=== PATIENT | female | born 1995 | race Caucasian/White ===

== ENCOUNTER 2016-10-05 16:10 | Emergency (ER) | payer OTHER ==
[2016-10-05 16:18] VITALS: O2SAT 100
[2016-10-05] MEDS ORDERED: Sodium Chloride 0.9% 1,000 ML IV STA (17:01)
[2016-10-05 18:27] LABS: BASO % 0.3 % (0.0-2.0); EOS # 0.2 K/uL (0.0-0.7); EOS % 1.8 % (0.0-4.0); HEMOGLOBIN 11.7 g/dL (12.0-16.0); LYMPH # 2.3 K/uL (1.0-4.3); LYMPH % 21.3 % (20.0-40.0); MEAN CELL VOLUME 83.7 fl (81.0-99.0); MEAN CORPUSCULAR HGB CONC 33.4 g/dL (33.0-37.0); MONO % 9.2 % (0.0-10.0); NEUT # 7.1 K/uL (1.8-7.0); NEUT % 67.4 % (50.0-75.0); NRBC % 0.1 % (0.0-0.0); RBC 4.18 Mil/uL (3.80-5.20); RED CELL DISTRIBUTION WIDTH 13.9 % (11.5-14.5); WHITE BLOOD COUNT 10.6 K/uL (4.8-10.8)
[2016-10-05 18:29] LABS: SQUAMOUS EPITHIAL 3 /hpf (0-5); URINE BACTERIA OCC (<OCC); URINE BILIRUBIN NEGATIVE (NEGATIVE); URINE BLOOD NEGATIVE (NEGATIVE); URINE CLARITY SLIGHTY-CLOUDY (Clear); URINE COLOR YELLOW (YELLOW); URINE GLUCOSE (UA) NEG (Normal); URINE LEUKOCYTE ESTERASE NEG Leu/uL (Negative); URINE NITRATE NEGATIVE (NEGATIVE); URINE PROTEIN NEGATIVE (NEGATIVE); URINE UROBILINOGEN 0.2-1.0 mg/dL (0.2-1.0)
[2016-10-05 18:44] LABS: ALB/GLOB RATIO 1.3 (1.0-2.1); ALBUMIN 4.1 g/dL (3.5-5.0); ALT/SGPT 31 U/L (9-52); AST/SGOT 22 U/L (14-36); BLOOD UREA NITROGEN 12 mg/dl (7-17); CALCIUM 9.1 mg/dL (8.4-10.2); GFR AFRICAN-AMERICAN > 60; GFR NON-AFRICAN AMERICAN > 60
--- NOTE | 2016-10-05 19:19 | ED PDOC ---
HPI: General Adult Time Seen by Provider: 10/05/16 17:01 Chief Complaint (Nursing): Dizziness/Lightheaded Chief Complaint (Provider): Dizziness, nausea History Per: Patient History/Exam Limitations: no limitations Onset/Duration Of Symptoms: Days (4-5) Have you had recent travel within the past 21 days to any of the following countries: [place], [place], [place] or [place]?: No Current Symptoms Are (Timing): Still Present Additional History Per: Patient Additional Complaint(s): The patient is a 21yo female, presents to the ED for evaluation of dizziness and nausea with associated mild abdominal pain and mild headache ongoing for the past 4-5 days. Patient also reports she "feels like body is swollen". Patient reports she has an IUD in place and denies any vaginal discharge or bleeding. Patient denies any pertinent past medical history. Currently, offers no additional medical complaints. LMP: 08/30 Past Medical History Reviewed: Historical Data, Nursing Documentation, Vital Signs Vital Signs: Last Vital Signs Temp 98.0 F 10/05/16 21:55 Pulse 84 10/05/16 21:55 Resp 18 10/05/16 21:55 BP 121/74 10/05/16 21:55 Pulse Ox 100 10/05/16 22:10 - Medical History PMH: No Chronic Diseases - Surgical History Surgical History: No Surg Hx - Family History Family History: States: No Known Family Hx, Unknown Family Hx - Social History Current smoker - smoking cessation education provided: No - Home Medications Home Medications: Ambulatory Orders Medication Instructions Recorded Esomeprazole Magnesium [Nexium] 20 mg PO DAILY #30 capsule.dr 10/05/16 Ibuprofen [Motrin Tab] 600 mg PO Q6 #30 tab 10/05/16 - Allergies Allergies/Adverse Reactions: Allergies Allergy/AdvReac Type Severity Reaction Status Date / Time No Known Allergies Allergy Verified 10/05/16 16:16 Review of Systems ROS Statement: Except As Marked, All Systems Reviewed And Found Negative Gastrointestinal: Positive for: Abdominal Pain Neurological: Positive for: Weakness, Headache, Dizziness Physical Exam - Reviewed Nursing Documentation Reviewed: Yes Vital Signs Reviewed: Yes - Physical Exam Appears: Positive for: Well, Non-toxic, No Acute Distress Head Exam: Positive for: ATRAUMATIC, NORMAL INSPECTION, NORMOCEPHALIC Skin: Positive for: Normal Color, Warm, DRY Eye Exam: Positive for: Normal appearance Neck: Positive for: Normal Cardiovascular/Chest: Positive for: Other (arrhythmia) Respiratory: Positive for: Normal Breath Sounds. Negative for: Respiratory Distress Gastrointestinal/Abdominal: Positive for: Soft, Tenderness (mild lower abdomen tenderness) Pelvic Exam: Positive for: Cervicitis (Heterogenous cervical discharge with cervicitis.), Other (IUD string noted in cervix) Extremity: Positive for: Pedal Edema (trace edema in bilateral lower extremities.). Negative for: Deformity Neurologic/Psych: Positive for: Alert, Oriented - Laboratory Results Result Diagrams: 10/05/16 18:21 10/05/16 18:21 - ECG ECG: Positive for: Interpreted By Me, Viewed By Me Interpretation Of ECG: Normal Sinus Sinus Arrhythmia Rate of [address]/T changes O2 Sat by Pulse Oximetry: 100 (RA) Pulse Ox Interpretation: Normal Medical Decision Making Medical Decision Making: Time: 1714 Impression: Dizziness, weakness Plan: -- UPreg -- Labs -- US Transvaginal -- Zofran -- Zithromax -- Rocephin -- IV fluids -- Pelvic exam performed with Nurse Ashley as tape calender Reassess Time: 1820 UPreg is negative. Chemistry indicates mild anemia, otherwise normal. Time: 1929 Patient to be signed out to Dr. Chris Oviedo pending US transvaginal and final disposition. Scribe Attestation: Documented by Eliz Mao acting as a scribe for Diego Keenan DO. Provider Attestation: All medical record entries made by the Scribe were at my direction and personally dictated by me. I have reviewed the chart and agree that the record accurately reflects my personal performance of the history, physical exam, medical decision making, and the department course for this patient. I have also personally directed, reviewed, and agree with the discharge instructions and disposition. Disposition - Clinical Impression Clinical Impression: Ruptured ovarian cyst - Patient ED Disposition Is Patient to be Admitted: Transfer of Care Counseled Patient/Family Regarding: Studies Performed, Diagnosis, Need For Followup, Rx Given - Disposition [facility] Disposition: Transfer of Care Disposition Time: 17:30 Condition: STABLE Prescriptions: Esomeprazole Magnesium [Nexium] 20 mg PO DAILY #30 capsule. Ibuprofen [Motrin Tab] 600 mg PO Q6 #30 tab Instructions: Ovarian Cyst (ED) Patient Signed Over To: Chris Oviedo Handoff Comments: Pending US.
[2016-10-05] MEDS ORDERED: cefTRIAXone (Rocephin) 250 mg Inj IM ONE (19:25)
[2016-10-05] MEDS ORDERED: Azithromycin 200 mg/5 ml Susp (22.5 ml) PO STA (19:26)
--- NOTE | 2016-10-05 20:09 | ED PDOC ---
- Laboratory Results Result Diagrams: 10/05/16 18:21 10/05/16 18:21 - ECG O2 Sat by Pulse Oximetry: 100 (RA) Medical Decision Making Medical Decision Making: Receiving sign out: Patient signed out to me by Dr. Keenan at 1930 pending US Transvaginal. Scribe Attestation: Documented by Eliz Mao acting as a scribe for Chris Oviedo MD. Provider Attestation: All medical record entries made by the Scribe were at my direction and personally dictated by me. I have reviewed the chart and agree that the record accurately reflects my personal performance of the history, physical exam, medical decision making, and the department course for this patient. I have also personally directed, reviewed, and agree with the discharge instructions and disposition. Disposition - Clinical Impression Clinical Impression: Ruptured ovarian cyst - POA Present On Arrival: None - Disposition [facility] [[facility]] Disposition: Routine/Home Disposition Time: 21:25 Condition: STABLE Prescriptions: Esomeprazole Magnesium [Nexium] 20 mg PO DAILY #30 capsule. Ibuprofen [Motrin Tab] 600 mg PO Q6 #30 tab Instructions: Ovarian Cyst (ED) Progress Note - Review of Symptoms Events since last encounter: Time: 2101 US Transvaginal IMPRESSION: IUD in expected location in the endometrial canal; small amount of fluid in the endometrial canal; free fluid in the cul-de-sac, physiologic versus recent cyst rupture Time: 2122 Patient informed of imaging results. Advised to follow up with powder core tester. Also informed to return to the ED if symptoms worsen or new symptoms present. Patient expresses understanding and is agreeable. Stable for discharge home.
--- NOTE | 2016-10-05 20:58 | US ---
EXAM: US Pelvis Complete, Transabdominal CLINICAL HISTORY: 21 years old, female; Pain; Pelvic pain; Additional info: Pelvic pain, iud placement TECHNIQUE: Real-time transabdominal pelvic ultrasound (complete) with image documentation. COMPARISON: There are no prior studies for comparison. FINDINGS: Uterus: Uterus measures approximately 7.7 x 2.6 x 4.8 cm. endometrium measures approximate 5 mm in width. There is shadowing from an IUD Right ovary: Right ovary measures approximately 4.3 x 2.9 x 4.2 cm. There are multiple small follicles. There is intraovarian blood flow. Left ovary: Left ovary measures approximately 4.3 x 1.2 x 2.7 cm. There are multiple small follicles. There is intraovarian blood flow. Free fluid: There is no free fluid. Bladder: Partially distended bladder is unremarkable IMPRESSION: Normal pelvic ultrasound with IUD in place EXAM: US Pelvis, Transvaginal CLINICAL HISTORY: 21 years old, female; Pain; Pelvic pain; Additional info: Pelvic pain, iud placement TECHNIQUE: Real-time transvaginal pelvic ultrasound (complete) with image documentation. Transvaginal imaging was used for better evaluation of the endometrium and adnexa. EXAM DATE/TIME: 10/05/2016 5:18 PM COMPARISON: There are no prior studies for comparison. FINDINGS: Uterus: Uterus measures approximately 6.3 x 3.6 x cm. there is shadowing from an IUD in the endometrial canal. There is fluid in the endometrial canal. Endometrium measures approximately 5 mm in length Left ovary: Left ovary measures approximately 2.67 x 1.44 x 1.97 cm. There are multiple small follicles. There is intraovarian blood flow. Right ovary: Right ovary measures approximately 4.06 x 2.8 x 2.91 cm. There are multiple small follicles. There is intraovarian blood flow. There is trace fluid in the right adnexa Free fluid: There is free fluid in the cul-de-sac. IMPRESSION: IUD in expected location in the endometrial canal; small amount of fluid in the endometrial canal; free fluid in the cul-de-sac, physiologic versus recent cyst rupture
[2016-10-05] MEDS ORDERED: cefTRIAXone (Rocephin) 250 mg Inj ONE (21:42)
[2016-10-05] MEDS ORDERED: Sterile Water 10 ML IV ONE (21:42)
[2016-10-06 00:49] VITALS: BP 121/74; PULSE 84; RESP 18; TEMP 98
--- NOTE | 2016-10-06 10:09 | CARD ---
APPROVED REPORT EKG Measurement Heart [id number] IA [id number] <Conclusion> Normal sinus rhythm with sinus arrhythmia Normal ECG
== END 2016-10-05 22:00 | disposition home or self-care (01) ==
LOC: H.ER 16:10
DX: N83.209 Unspecified ovarian cyst, unspecified side (principal); R42 Dizziness and giddiness; D64.9 Anemia, unspecified

== ENCOUNTER 2016-12-07 14:24 | Emergency (ER) | payer SELFPAY ==
[2016-12-07 14:32] VITALS: BP 104/62; PULSE 72; RESP 18; TEMP 98.4; O2SAT 98
[2016-12-07] MEDS ORDERED: Sodium Chloride 0.9% 1,000 ML IV STA (15:13)
--- NOTE | 2016-12-07 15:17 | ED PDOC ---
HPI: Headache Time Seen by Provider: 12/07/16 14:56 Chief Complaint (Nursing): Dizziness/Lightheaded Chief Complaint (Provider): headache History Per: Patient History/Exam Limitations: no limitations Onset/Duration Of Symptoms: Days (10), Gradual, Persistent, Worse Since (Wednesday) Current Symptoms Are (Timing): Still Present Severity: Moderate Quality: Aching, "Pain" Preceeding Symptoms: None Associated Symptoms: Nausea, Vomiting. denies: Photophobia, Blurred Vision, Extremity Weakness Additional Complaint(s): Also reports abdominal pain and dizziness and fatigue Tried tylenol with no relief PMD None Past Medical History Reviewed: Historical Data, Nursing Documentation, Vital Signs Vital Signs: Last Vital Signs Temp 98.4 F 12/07/16 14:28 Pulse 72 12/07/16 14:28 Resp 18 12/07/16 14:28 BP 104/62 12/07/16 14:28 Pulse Ox 98 12/07/16 14:28 - Medical History PMH: No Chronic Diseases - Family History Family History: States: No Known Family Hx - Social History Current smoker - smoking cessation education provided: No Alcohol: None - Home Medications Home Medications: Ambulatory Orders Medication Instructions Recorded Esomeprazole Magnesium [Nexium] 20 mg PO DAILY #30 capsule. 10/05/16 Ibuprofen [Motrin Tab] 600 mg PO Q6 #30 tab 10/05/16 Dicyclomine [Bentyl] 20 mg PO BID PRN #30 tab 12/07/16 Naproxen [Naprosyn] 1 tab PO BID PRN #30 tab 12/07/16 Ondansetron ODT [Zofran ODT] 1 odt PO Q6 PRN #20 odt 12/07/16 - Allergies Allergies/Adverse Reactions: Allergies Allergy/AdvReac Type Severity Reaction Status Date / Time No Known Allergies Allergy Verified 10/05/16 16:16 Review of Systems ROS Statement: Except As Marked, All Systems Reviewed And Found Negative (and as per HPI) Constitutional: Positive for: Weakness, Malaise. Negative for: Fever, Chills Eyes: Negative for: Vision Change ENT: Negative for: Throat Pain, Throat Swelling Cardiovascular: Positive for: Light Headedness. Negative for: Chest Pain, Edema Respiratory: Negative for: Cough, Shortness of Breath Gastrointestinal: Positive for: Nausea, Vomiting, Abdominal Pain. Negative for : Diarrhea, Constipation, Melena, Hematochezia, Hematemesis Neurological: Positive for: Headache, Dizziness. Negative for: Weakness, Numbness, Seizures Physical Exam - Reviewed Nursing Documentation Reviewed: Yes Vital Signs Reviewed: Yes - Physical Exam Appears: Positive for: Non-toxic, No Acute Distress Head Exam: Positive for: ATRAUMATIC, NORMOCEPHALIC Skin: Positive for: Warm, Dry Eye Exam: Positive for: EOMI, PERRL. Negative for: Nystagmus ENT: Positive for: Other (tacky mucus membranes). Negative for: Pharyngeal Erythema, Tonsillar Exudate Neck: Positive for: Painless ROM, Supple Cardiovascular/Chest: Positive for: Regular Rate, Rhythm, Chest Non Tender. Negative for: Murmur Respiratory: Positive for: Normal Breath Sounds. Negative for: Rales, Wheezing , Respiratory Distress Gastrointestinal/Abdominal: Positive for: Bowel Sounds, Soft, Tenderness ( diffuse mild). Negative for: Mass, Distended, Guarding, Rebound Back: Positive for: Normal Inspection. Negative for: Decreased ROM Extremity: Positive for: Normal ROM. Negative for: Deformity Neurologic/Psych: Positive for: Alert, environmental permitting specialist II-XII (intact), Oriented (x3), Gait (normal). Negative for: Motor/Sensory Deficits, Aphasia, Facial Droop - Laboratory Results Result Diagrams: 12/07/16 15:30 12/07/16 16:45 Interpretation Of Abn Labs: No significant lab abnormalities - ECG O2 Sat by Pulse Oximetry: 98 Pulse Ox Interpretation: Normal - Progress ED Course And Treament: Accession No. : [id number] Patient Name / ID : IVAN TELLO / [id number] Exam Date : 12/07/2016 16:03:57 ( Approved ) Study Comment : Sex / Age : F / 21Y Creator : RAISSA STOUT MD Dictator : RAISSA STOUT MD Slitting Machine Operator : Disassembler Product : RAISSA STOUT MD Approver2 : Report Date : 12/07/2016 16:42:09 My Comment : PROCEDURE: CT HEAD WITHOUT CONTRAST. HISTORY: Headache COMPARISON: None available. TECHNIQUE: Axial computed tomography images were obtained through the head/brain without intravenous contrast. Radiation dose: Total exam DLP = 830.35 mGy-cm. This CT exam was performed using one or more of the following dose reduction techniques: Automated exposure control, adjustment of the mA and/or kV according to patient size, and/or use of iterative reconstruction technique. FINDINGS: HEMORRHAGE: No intracranial hemorrhage. BRAIN: Butt-white matter differentiation is preserved. There is no mass, mass effect or abnormal extra-axial fluid collection. There is no territorial infarction. VENTRICLES: The ventricles are normal in size, shape and configuration. CALVARIUM: The skull base and calvarium are normal. PARANASAL SINUSES: Predominantly clear. MASTOID AIR CELLS: Predominantly clear. OTHER FINDINGS: None. IMPRESSION: No acute intracranial abnormality. Disposition - Clinical Impression Clinical Impression: Headache Counseled Patient/Family Regarding: Studies Performed, Diagnosis, Need For Followup, Rx Given - Disposition Referrals: [facility] [Outside] - 12/08/16 Disposition: Routine/Home Disposition Time: 17:00 Condition: IMPROVED Prescriptions: Dicyclomine [Bentyl] 20 mg PO BID PRN #30 tab PRN Reason: abdominal pain Naproxen [Naprosyn] 1 tab PO BID PRN #30 tab PRN Reason: Pain Ondansetron ODT [Zofran ODT] 1 odt PO Q6 PRN #20 odt PRN Reason: Nausea/Vomiting Instructions: General Headache (ED), Abdominal Pain (ED)
[2016-12-07 15:45] LABS: BASO % 0.2 % (0.0-2.0); EOS # 0.1 K/uL (0.0-0.7); EOS % 0.9 % (0.0-4.0); LYMPH % 27.4 % (20.0-40.0); MEAN CORPUSCULAR HEMOGLOBIN 27.3 pg (27.0-31.0); MEAN CORPUSCULAR HGB CONC 32.5 g/dL (33.0-37.0); MEAN PLATELET VOLUME 8.2 fl (7.2-11.7); MONO # 0.7 K/uL (0.0-0.8); MONO % 8.9 % (0.0-10.0); NEUT # 4.7 K/uL (1.8-7.0); NEUT % 62.6 % (50.0-75.0); RED CELL DISTRIBUTION WIDTH 14.1 % (11.5-14.5); WHITE BLOOD COUNT 7.5 K/uL (4.8-10.8)
--- NOTE | 2016-12-07 16:43 | CT ---
PROCEDURE: CT HEAD WITHOUT CONTRAST. HISTORY: Headache COMPARISON: None available. TECHNIQUE: Axial computed tomography images were obtained through the head/brain without intravenous contrast. Radiation dose: Total exam DLP = 830.35 mGy-cm. This CT exam was performed using one or more of the following dose reduction techniques: Automated exposure control, adjustment of the mA and/or kV according to patient size, and/or use of iterative reconstruction technique. FINDINGS: HEMORRHAGE: No intracranial hemorrhage. BRAIN: Butt-white matter differentiation is preserved. There is no mass, mass effect or abnormal extra-axial fluid collection. There is no territorial infarction. VENTRICLES: The ventricles are normal in size, shape and configuration. CALVARIUM: The skull base and calvarium are normal. PARANASAL SINUSES: Predominantly clear. MASTOID AIR CELLS: Predominantly clear. OTHER FINDINGS: None. IMPRESSION: No acute intracranial abnormality.
[2016-12-07 16:52] LABS: ALB/GLOB RATIO 1.3 (1.0-2.1); ALKALINE PHOSPHATASE 54 U/L (38-126); ALT/SGPT 23 U/L (9-52); AST/SGOT 22 U/L (14-36); BILIRUBIN,TOTAL 0.4 mg/dl (0.2-1.3); BLOOD UREA NITROGEN 8 mg/dl (7-17); CALCIUM 9.3 mg/dL (8.4-10.2); CARBON DIOXIDE 23 mmol/L (22-30); CHLORIDE 107 mmol/L (98-107); GFR AFRICAN-AMERICAN > 60; GLUCOSE,RANDOM 77 mg/dL (65-105); LIPASE 104 U/L (23-300); MAGNESIUM 1.9 MG/DL (1.6-2.3); PHOSPHOROUS 3.2 mg/dl (2.5-4.5); POTASSIUM 3.9 MMOL/L (3.6-5.0); SODIUM 144 mmol/l (132-148); TOTAL PROTEIN 7.3 G/DL (6.3-8.2)
== END 2016-12-07 17:50 | disposition home or self-care (01) ==
LOC: H.ER 14:24
DX: R51 Headache (principal); R42 Dizziness and giddiness
CPT/HCPCS: 70450; 80053; 81025; 82948; 83690; 83735; 84100; 85025; 96361; 96374; 96375; 99284; J1885; J2765; J7040

== ENCOUNTER 2017-07-11 10:01 | Emergency (ER) | payer SELFPAY ==
[2017-07-11 10:07] VITALS: TEMP 98.4; O2SAT 99
--- NOTE | 2017-07-11 10:34 | ED PDOC ---
HPI: General Adult Time Seen by Provider: 07/11/17 10:33 Chief Complaint (Nursing): Abdominal Pain Chief Complaint (Provider): back pain History Per: Patient Additional Complaint(s): 22 year female with no past medical history presents with low back pain for 3 days. Patient denies abdominal pain despite triage note stating otherwise. No fever or chills, no dysuria, no radiation of pain to lower extremities. Patient thinks that she may be . She denies any vaginal bleeding or discharge at this time. Patient has no concern for STDs. PMD: clinic Past Medical History Reviewed: Historical Data, Nursing Documentation, Vital Signs Vital Signs: Last Vital Signs Temp 98.4 F 07/11/17 10:06 Pulse 82 07/11/17 10:06 Resp 16 07/11/17 10:06 BP 117/71 07/11/17 10:06 Pulse Ox 99 07/11/17 10:48 - Medical History PMH: No Chronic Diseases - Surgical History Surgical History: No Surg Hx - Family History Family History: States: No Known Family Hx - Living Arrangements Living Arrangements: With Family - Social History Current smoker - smoking cessation education provided: No Alcohol: None Drugs: Denies - Home Medications Home Medications: Ambulatory Orders Medication Instructions Recorded Cyclobenzaprine [Cyclobenzaprine 10 mg PO TID PRN #20 tab 07/11/17 HCl] Naproxen [Naprosyn] 500 mg PO BID #20 tab 07/11/17 - Allergies Allergies/Adverse Reactions: Allergies Allergy/AdvReac Type Severity Reaction Status Date / Time No Known Allergies Allergy Verified 07/11/17 10:25 Review of Systems ROS Statement: Except As Marked, All Systems Reviewed And Found Negative Constitutional: Negative for: Fever Cardiovascular: Negative for: Chest Pain Respiratory: Negative for: Cough Gastrointestinal: Negative for: Nausea, Vomiting, Abdominal Pain, Diarrhea Genitourinary Female: Negative for: Dysuria, Vaginal Discharge, Vaginal Bleeding Musculoskeletal: Positive for: Back Pain Physical Exam - Reviewed Nursing Documentation Reviewed: Yes Vital Signs Reviewed: Yes - Physical Exam Appears: Positive for: Well, Non-toxic, No Acute Distress Skin: Negative for: Rash Eye Exam: Positive for: Normal appearance Cardiovascular/Chest: Positive for: Regular Rate, Rhythm Respiratory: Positive for: Normal Breath Sounds. Negative for: Respiratory Distress Gastrointestinal/Abdominal: Positive for: Soft. Negative for: Tenderness, Distended, Guarding, Rebound Back: Positive for: Vertebral Tenderness (Tenderness to midline of lumbar spine with no step-off, palpable muscle spasm, no CVA tenderness bilaterally negative bilateral straight leg raise). Negative for: L CVA Tenderness, R CVA Tenderness Extremity: Positive for: Normal ROM Neurologic/Psych: Positive for: Alert, Oriented, Gait (steady) - Laboratory Results Urine POC: Negative Urine dip results: Negative for: Leukocyte Esterase, Blood, Nitrate, Ketones, Glucose, Bilirubin, Protein - ECG O2 Sat by Pulse Oximetry: 99 Pulse Ox Interpretation: Normal - Other Rad LS Spine X-ray X-Ray: Interpreted by Me, Viewed By Me X-Ray Interpretation: no fx, no dis Medical Decision Making Medical Decision Makin-year-old female with lower back pain Plan: PO motrin PO tylenol LS Spine x-ray Urine dip test Patient is aware of diagnostic testing results, all questions answered. Patient feels better after meds given. Prescriptions for Naprosyn and Flexeril provided for back pain. Patient was instructed to follow-up with clinic. Disposition - Clinical Impression Clinical Impression: Low back strain - Patient ED Disposition Is Patient to be Admitted: No Counseled Patient/Family Regarding: Studies Performed, Diagnosis, Need For Followup, Rx Given - Disposition Referrals: [facility] [Outside] Disposition: Routine/Home Disposition Time: 11:16 Condition: STABLE Additional Instructions: Take rx meds as directed as needed for pain. Follow-up with clinic for further evaluation. Prescriptions: Cyclobenzaprine [Cyclobenzaprine HCl] 10 mg PO TID PRN #20 tab PRN Reason: Muscle Spasm Naproxen [Naprosyn] 500 mg PO BID #20 tab Instructions: Low Back Pain (DC), Lumbar Muscle Strain (DC), Back Exercises Forms: [employer] (Turkmen)
[2017-07-11 12:20] VITALS: BP 107/60; PULSE 71; RESP 18
--- NOTE | 2017-07-11 12:23 | RAD ---
PROCEDURE: Radiographs of the Lumbar Spine. HISTORY: Low back pain COMPARISON: No prior. FINDINGS: BONES: There is normal alignment of the lumbar vertebral bodies. There is normal lumbar lordosis. There is no acute fracture, spondylolysis or spondylolisthesis. Bone mineralization is normal. DISC SPACES: The disc heights are maintained. OTHER FINDINGS: There are no pathologic soft tissue calcifications. Both sacroiliac joints are normal. IMPRESSION: No acute fracture, spondylolysis or spondylolisthesis.
== END 2017-07-11 12:20 | disposition home or self-care (01) ==
LOC: H.ER 10:01
DX: S39.012A Strain of muscle, fascia and tendon of lower back, initial encounter (principal); Y92.89 Other specified places as the place of occurrence of the external cause

== ENCOUNTER 2017-12-29 20:13 | Emergency (ER) | payer OTHER, SELFPAY ==
[2017-12-29 20:33] VITALS: RESP 16; O2SAT 99
--- NOTE | 2017-12-29 20:53 | ED PDOC ---
HPI: General Adult Time Seen by Provider: 12/29/17 20:50 Chief Complaint (Nursing): GI Problem Chief Complaint (Provider): cough, vomiting History Per: Patient Additional Complaint(s): 22-year-old female presents with cough, nausea, vomiting, headache and body aches 2 days. Patient states that today the vomiting has improved and today she has been able to keep down liquids. She still complains of nausea upon arrival. No associated abdominal pain, diarrhea or constipation. Patient denies any recent travel. PMD: none Past Medical History Reviewed: Historical Data, Nursing Documentation, Vital Signs Vital Signs: Last Vital Signs Temp 98.1 F 12/29/17 20:31 Pulse 77 12/29/17 20:31 Resp 16 12/29/17 20:31 BP 108/61 12/29/17 20:31 Pulse Ox 99 12/29/17 20:31 - Medical History PMH: No Chronic Diseases - Surgical History Surgical History: No Surg Hx - Family History Family History: States: No Known Family Hx - Living Arrangements Living Arrangements: With Family - Social History Current smoker - smoking cessation education provided: No Alcohol: None Drugs: Denies - Home Medications Home Medications: Ambulatory Orders Medication Instructions Recorded Cyclobenzaprine [Cyclobenzaprine 10 mg PO TID PRN #20 tab 07/11/17 HCl] Naproxen [Naprosyn] 500 mg PO BID #20 tab 07/11/17 Cephalexin [Keflex] 500 mg PO TID #21 capsule 12/29/17 Ondansetron [Zofran Odt] 4 mg PO ASDIR PRN #12 odt 12/29/17 - Allergies Allergies/Adverse Reactions: Allergies Allergy/AdvReac Type Severity Reaction Status Date / Time No Known Allergies Allergy Verified 12/29/17 20:30 Review of Systems ROS Statement: Except As Marked, All Systems Reviewed And Found Negative Constitutional: Positive for: Chills, Other (body aches). Negative for: Fever Cardiovascular: Negative for: Chest Pain Respiratory: Positive for: Cough Gastrointestinal: Positive for: Nausea, Vomiting. Negative for: Abdominal Pain, Diarrhea, Constipation Genitourinary Female: Negative for: Dysuria Neurological: Positive for: Headache. Negative for: Dizziness Physical Exam - Reviewed Nursing Documentation Reviewed: Yes Vital Signs Reviewed: Yes - Physical Exam Appears: Positive for: Well, Non-toxic, No Acute Distress Skin: Positive for: Normal Color. Negative for: Rash Eye Exam: Positive for: Normal appearance ENT: Positive for: Pharyngeal Erythema. Negative for: Nasal Congestion, Tonsillar Exudate, Tonsillar Swelling Cardiovascular/Chest: Positive for: Regular Rate, Rhythm Respiratory: Positive for: Normal Breath Sounds. Negative for: Wheezing, Respiratory Distress Gastrointestinal/Abdominal: Positive for: Soft. Negative for: Tenderness, Distended, Guarding, Rebound Back: Negative for: L CVA Tenderness, R CVA Tenderness Extremity: Positive for: Normal ROM Neurologic/Psych: Positive for: Alert, Oriented - Laboratory Results Result Diagrams: 12/29/17 21:50 12/29/17 21:50 Urine POC: Negative Urine dip results: Positive for: Leukocyte Esterase (trace). Negative for: Blood, Nitrate, Ketones, Glucose, Bilirubin, Protein - ECG O2 Sat by Pulse Oximetry: 99 Pulse Ox Interpretation: Normal - Other Rad CXR X-Ray: Interpreted by Me, Viewed By Me X-Ray Interpretation: no acute infiltrate Medical Decision Making Medical Decision Makin22 y/o with cough, vomiting and headache Plan: Urine preg test Urine dip CBC CMP Lipase CXR Flu swab Rapid strep IVF IV zofran 22:50: Patient ate chocolate and became nauseous again, additional 4 mg IV Zofran administered with improvement to nausea. Patient now tolerating water after second dose of Zofran given. Patient is aware of all diagnostic testing results, all questions answered. Prescriptions for Zofran and Keflex provided. Advised fluids, rest and PMD or clinic follow-up in 2-3 days. Disposition - Clinical Impression Clinical Impression: Urinary tract infection, Vomiting - Patient ED Disposition Is Patient to be Admitted: No Counseled Patient/Family Regarding: Studies Performed, Diagnosis, Need For Followup, Rx Given - Disposition Referrals: [facility] [Outside] Disposition: Routine/Home Disposition Time: 22:56 Condition: STABLE Additional Instructions: Take prescription meds as directed. Rest of August plenty of fluids. Follow bland diet only. Follow-up in 2-3 days with clinic or return to emergency room if acutely worse at any time. Prescriptions: Cephalexin [Keflex] 500 mg PO TID #21 capsule Ondansetron [Zofran Odt] 4 mg PO ASDIR PRN #12 odt PRN Reason: Nausea/Vomiting Instructions: Urinary Tract Infection, Adult (DC), Nausea and Vomiting, Adult Forms: [employer] (Cambodian) Results - Lab Results Lab Results: 12/29/17 12/29/17 12/29/17 21:50 21:50 21:50 WBC 7.7 RBC 4.24 Hgb 12.0 Hct 36.1 MCV 85.0 MCH 28.2 MCHC 33.2 RDW 14.0 Plt Count 216 MPV 8.9 Neut % (Auto) 61.0 Lymph % (Auto) 24.0 [place] % (Auto) 10.5 H Eos % (Auto) 3.8 Baso % (Auto) 0.7 Neut # (Auto) 4.7 Lymph # (Auto) 1.8 [place] # (Auto) 0.8 Eos # (Auto) 0.3 Baso # (Auto) 0.1 Sodium 140 Potassium 4.4 Chloride 106 Carbon Dioxide 26 Anion Gap 12 BUN 15 Creatinine 0.5 L Est GFR ( Amer) > 60 Est GFR (Non-Af Amer) > 60 Random Glucose 87 Calcium 9.1 Total Bilirubin 0.3 AST 27 ALT 28 Alkaline Phosphatase 40 Total Protein 7.6 Albumin 4.0 Globulin 3.7 Albumin/Globulin Ratio 1.1 Lipase 63 Urine Color Yellow Urine Clarity Slighty-cloudy Urine pH 6.0 Ur Specific Orange 1.020 Urine Protein Negative Urine Glucose (UA) Neg Urine Ketones Negative Urine Blood Negative Urine Nitrate Negative Urine Bilirubin Negative Urine Urobilinogen 4.0 H Ur Leukocyte Esterase Small Urine RBC (Auto) 3 Urine Microscopic WBC 6 H Ur Squamous Epith Cells 6 H Urine Bacteria Rare Influenza Typ A,B (EIA) Grp A Beta Strep Ag 12/29/17 12/29/17 21:23 07:16 WBC RBC Hgb Hct MCV MCH MCHC RDW Plt Count MPV Neut % (Auto) Lymph % (Auto) [place] % (Auto) Eos % (Auto) Baso % (Auto) Neut # (Auto) Lymph # (Auto) [place] # (Auto) Eos # (Auto) Baso # (Auto) Sodium Potassium Chloride Carbon Dioxide Anion Gap BUN Creatinine Est GFR ( Amer) Est GFR (Non-Af Amer) Random Glucose Calcium Total Bilirubin AST ALT Alkaline Phosphatase Total Protein Albumin Globulin Albumin/Globulin Ratio Lipase Urine Color Urine Clarity Urine pH Ur Specific Orange Urine Protein Urine Glucose (UA) Urine Ketones Urine Blood Urine Nitrate Urine Bilirubin Urine Urobilinogen Ur Leukocyte Esterase Urine RBC (Auto) Urine Microscopic WBC Ur Squamous Epith Cells Urine Bacteria Influenza Typ A,B (EIA) Negative for flu a/b Grp A Beta Strep Ag Negative
[2017-12-29] MEDS ORDERED: Sodium Chloride 0.9% 1,000 ML IV STA (21:14)
[2017-12-29 22:04] LABS: BASO # 0.1 K/uL (0.0-0.2); BASO % 0.7 % (0.0-2.0); EOS # 0.3 K/uL (0.0-0.7); EOS % 3.8 % (0.0-4.0); LYMPH # 1.8 K/uL (1.0-4.3); MEAN CORPUSCULAR HEMOGLOBIN 28.2 pg (27.0-31.0); MEAN CORPUSCULAR HGB CONC 33.2 g/dL (33.0-37.0); MEAN PLATELET VOLUME 8.9 fl (7.2-11.7); MONO # 0.8 K/uL (0.0-0.8); MONO % 10.5 % (0.0-10.0); NEUT # 4.7 K/uL (1.8-7.0); RBC 4.24 Mil/uL (3.80-5.20); WHITE BLOOD COUNT 7.7 K/uL (4.8-10.8)
[2017-12-29 22:08] LABS: SQUAMOUS EPITHIAL 6 /hpf (0-5); URINE BACTERIA RARE (<OCC); URINE BILIRUBIN NEGATIVE (NEGATIVE); URINE BLOOD NEGATIVE (NEGATIVE); URINE CLARITY SLIGHTY-CLOUDY (Clear); URINE COLOR YELLOW (YELLOW); URINE GLUCOSE (UA) NEG (Normal); URINE LEUKOCYTE ESTERASE SMALL Leu/uL (Negative); URINE PROTEIN NEGATIVE (NEGATIVE)
[2017-12-29 22:13] LABS: ALB/GLOB RATIO 1.1 (1.0-2.1); ALT/SGPT 28 U/L (9-52); AST/SGOT 27 U/L (14-36); BLOOD UREA NITROGEN 15 mg/dl (7-17); CALCIUM 9.1 mg/dL (8.4-10.2); GFR NON-AFRICAN AMERICAN > 60; LIPASE 63 U/L (23-300)
[2017-12-29 23:34] VITALS: BP 106/78; PULSE 72; TEMP 98.4
--- NOTE | 2017-12-30 10:20 | RAD ---
HISTORY: Cough COMPARISON: No prior. TECHNIQUE: Chest PA and lateral FINDINGS: LINES AND TUBES: None. LUNG AND PLEURA: The lungs are well inflated and clear. No pleural effusion or pneumothorax. HEART AND MEDIASTINUM: The heart is not enlarged. No aortic atherosclerotic calcification present. The hilar and mediastinal contours are within normal limits. SKELETAL STRUCTURES: The bony structures are within normal limits for the patient's age. VISUALIZED UPPER ABDOMEN: Normal. OTHER FINDINGS: None. IMPRESSION: No active pulmonary disease.
== END 2017-12-29 23:35 | disposition home or self-care (01) ==
LOC: H.ER 20:13
DX: R30.9 Painful micturition, unspecified (principal); R11.10 Vomiting, unspecified
CPT/HCPCS: 71046; 80053; 81003; 81025; 83690; 85025; 87070; 87086; 87430; 87804; 96360; 99285; J2405; J7030

== ENCOUNTER 2018-02-14 10:22 | Emergency (ER) | payer OTHER ==
[2018-02-14 10:29] VITALS: BP 106/65; PULSE 79; RESP 18; TEMP 98.1; O2SAT 98
[2018-02-14] MEDS ORDERED: Sodium Chloride 0.9% 1,000 ML IV STA (11:42)
[2018-02-14 12:12] LABS: BASO % 0.5 % (0.0-2.0); EOS # 0.1 K/uL (0.0-0.7); EOS % 0.9 % (0.0-4.0); HEMOGLOBIN 11.8 g/dL (12.0-16.0); LYMPH # 1.6 K/uL (1.0-4.3); LYMPH % 23.6 % (20.0-40.0); MEAN CORPUSCULAR HEMOGLOBIN 28.3 pg (27.0-31.0); MEAN CORPUSCULAR HGB CONC 32.9 g/dL (33.0-37.0); MEAN PLATELET VOLUME 8.1 fl (7.2-11.7); MONO # 0.6 K/uL (0.0-0.8); MONO % 8.7 % (0.0-10.0); NEUT # 4.5 K/uL (1.8-7.0); NEUT % 66.3 % (50.0-75.0); NRBC % 0.4 % (0.0-0.0); RBC 4.15 Mil/uL (3.80-5.20); RED CELL DISTRIBUTION WIDTH 13.5 % (11.5-14.5); WHITE BLOOD COUNT 6.7 K/uL (4.8-10.8)
[2018-02-14 12:20] LABS: ALBUMIN 3.9 g/dL (3.5-5.0); ALT/SGPT 20 U/L (9-52); AST/SGOT 26 U/L (14-36); BLOOD UREA NITROGEN 8 mg/dl (7-17); CALCIUM 9.6 mg/dL (8.4-10.2); GFR NON-AFRICAN AMERICAN > 60
--- NOTE | 2018-02-14 12:39 | ED PDOC ---
HPI: Abdomen Time Seen by Provider: 02/14/18 11:00 Chief Complaint (Nursing): Abdominal Pain Chief Complaint (Provider): Abdominal Pain History Per: Patient History/Exam Limitations: no limitations Onset/Duration Of Symptoms: Days Location Of Pain/Discomfort: Suprapubic Quality Of Discomfort: "Pain" Associated Symptoms: Chills, Nausea Additional Complaint(s): 23 year old female presents to the ED for an evaluation of lower abdominal pain, lower back pain associated with nausea and dizziness onset for 4 days. Her last menstrual period was on 01/14/18. Reports she gets chills at night. Denies vomiting, fever, hematuria or vaginal bleeding. PMD: Salguero,Gilberto Abnormal Vaginal Bleeding: No Last Menstral Period: 01/14 Past Medical History Reviewed: Historical Data, Nursing Documentation, Vital Signs Vital Signs: Last Vital Signs Temp 98.1 F 02/14/18 10:28 Pulse 79 02/14/18 10:28 Resp 18 02/14/18 10:28 BP 106/65 02/14/18 10:28 Pulse Ox 98 02/14/18 10:28 - Medical History PMH: No Chronic Diseases - Surgical History Surgical History: No Surg Hx - Family History Family History: States: Unknown Family Hx - Social History Current smoker - smoking cessation education provided: No Alcohol: None Drugs: Denies - Home Medications Home Medications: Ambulatory Orders Medication Instructions Recorded Cyclobenzaprine [Cyclobenzaprine 10 mg PO TID PRN #20 tab 07/11/17 HCl] Naproxen [Naprosyn] 500 mg PO BID #20 tab 07/11/17 Cephalexin [Keflex] 500 mg PO TID #21 capsule 12/29/17 Ondansetron [Zofran Odt] 4 mg PO ASDIR PRN #12 odt 12/29/17 Pnv with Ca,No.72/Iron/FA 1 tab PO DAILY #14 tab 02/14/18 [ Vitamins Plus Low Iron] - Allergies Allergies/Adverse Reactions: Allergies Allergy/AdvReac Type Severity Reaction Status Date / Time No Known Allergies Allergy Verified 12/29/17 20:30 Review of Systems ROS Statement: Except As Marked, All Systems Reviewed And Found Negative Constitutional: Positive for: Chills Gastrointestinal: Positive for: Nausea, Abdominal Pain. Negative for: Vomiting, Diarrhea Genitourinary Female: Negative for: Dysuria, Frequency, Incontinence, Hematuria, Vaginal Bleeding Musculoskeletal: Positive for: Back Pain Neurological: Positive for: Dizziness Physical Exam - Reviewed Nursing Documentation Reviewed: Yes Vital Signs Reviewed: Yes - Physical Exam Appears: Positive for: Non-toxic, No Acute Distress Head Exam: Positive for: ATRAUMATIC, NORMAL INSPECTION, NORMOCEPHALIC Skin: Positive for: Normal Color, Warm, Dry. Negative for: Rash Eye Exam: Positive for: Normal appearance, EOMI, PERRL ENT: Positive for: Normal ENT Inspection Neck: Positive for: Normal, Painless ROM, Supple. Negative for: Decreased ROM Cardiovascular/Chest: Positive for: Regular Rate, Rhythm. Negative for: Murmur Respiratory: Positive for: Normal Breath Sounds. Negative for: Decreased Breath Sounds, Wheezing, Respiratory Distress Gastrointestinal/Abdominal: Positive for: Normal Exam, Bowel Sounds, Soft. Ne gative for: Tenderness Back: Positive for: Normal Inspection. Negative for: L CVA Tenderness, R CVA Tenderness Extremity: Positive for: Normal ROM. Negative for: Tenderness, Pedal Edema, Deformity Neurologic/Psych: Positive for: Alert, Oriented (x3). Negative for: Motor/Sensory Deficits - Laboratory Results Result Diagrams: 02/14/18 11:55 02/14/18 11:55 - ECG O2 Sat by Pulse Oximetry: 98 (RA) Pulse Ox Interpretation: Normal Medical Decision Making Medical Decision Making: Time: 1155 Initial Plan: multiple complaints, back, abdominal pain, rule out , electrolyte abnormality BETA-HCG, Quantitative CMP CBC w/ differential Normal Saline 1000 mls/hr Urine C&S Urinalysis Reevaluation Patient was informed by marine underwriter that she is . she states she had two prior pregnancies. one child and one miscarraige. Her Beta HCG here, Quantitative was 342, which is too low to be able tosee anything on ultrasound so informed her that she needs to follow up with christmas tree contractor in 1-2 days. urine result was negative with normal labs. She feels better with the IV and advised to take Tylenol. pt denies any pain at this time. states she feels better and ready to go home. she doesnt have obgyn, just a primary doctor. instructed her that she needs to follo wup with obstetrician and gynaecologist and in interim stay h ydrated, tylenol for pain and return w any pain or vaginal bleeding. pt agreeable to plan. Scribe Attestation: Documented by Raleigh Reddy, acting as a scribe for Elaine Hugo MD. Provider Scribe Attestation: All medical record entries made by the Scribe were at my direction and personally dictated by me. I have reviewed the chart and agree that the record accurately reflects my personal performance of the history, physical exam, medical decision making, and the department course for this patient. I have also personally directed, reviewed, and agree with the discharge instructions and disposition. Disposition - Clinical Impression Clinical Impression: - Patient ED Disposition Is Patient to be Admitted: No Counseled Patient/Family Regarding: Studies Performed, Diagnosis, Need For Followup - Disposition Referrals: [facility] [Outside] [facility] [Outside] Gilberto Salguero MD [Primary Care Provider] - Disposition: Routine/Home Disposition Time: 11:30 Condition: IMPROVED Additional Instructions: follow up with [facility] tree contractor within 1-2 days return to the ED with any worsening or concerning symptoms Prescriptions: Pnv with Ca,No.72/Iron/FA [ Vitamins Plus Low Iron] 1 tab PO DAILY #14 tab Instructions: Medications and Forms: [employer] (Arabic)
[2018-02-14 12:40] LABS: SQUAMOUS EPITHIAL 4 /hpf (0-5); URINE BACTERIA RARE (<OCC); URINE BILIRUBIN NEGATIVE (NEGATIVE); URINE BLOOD NEGATIVE (NEGATIVE); URINE CLARITY SLIGHTY-CLOUDY (Clear); URINE COLOR YELLOW (YELLOW); URINE GLUCOSE (UA) NEG (Normal); URINE LEUKOCYTE ESTERASE TRACE Leu/uL (Negative); URINE PROTEIN NEGATIVE (NEGATIVE); URINE UROBILINOGEN 0.2-1.0 mg/dL (0.2-1.0)
== END 2018-02-14 14:16 | disposition home or self-care (01) ==
LOC: SUPCPDRO 10:22 → H.ER 10:22
DX: Z33.1 Pregnant state, incidental (principal)
CPT/HCPCS: 80053; 81003; 81025; 84702; 85025; 87086; 99283; J7030

== ENCOUNTER 2018-03-01 14:48 | Emergency (ER) | payer SELFPAY ==
--- NOTE | 2018-03-01 15:36 | ED PDOC ---
HPI: Female Pain Time Seen by Provider: 03/01/18 15:08 Chief Complaint (Nursing): Female Genitourinary Chief Complaint (Provider): Female Genitourinary History Per: Patient History/Exam Limitations: no limitations Onset/Duration Of Symptoms: Days (today) Current Symptoms Are (Timing): Still Present Quality Of Discomfort: "Pain" Associated Symptoms: Back Pain Additional Complaint(s): 23 year old female () with no significant past medical history presents to the ED for vaginal spotting and low back pain onset today. Patients last menstrual period was 01/16/18. She denies any abdominal pain or any other medical complaints. PMD: Dr. Kriss Schumacher Abnormal Vaginal Bleeding: Yes Last Menstral Period: 01/16/18 : 2 Para: 1 Past Medical History Reviewed: Historical Data, Nursing Documentation, Vital Signs Vital Signs: Last Vital Signs Temp 97.8 F 03/01/18 15:03 Pulse 102 H 03/01/18 15:03 Resp 20 03/01/18 15:03 BP 94/64 L 03/01/18 15:03 Pulse Ox 99 03/01/18 15:03 - Medical History PMH: No Chronic Diseases - Surgical History Surgical History: No Surg Hx - Family History Family History: States: Unknown Family Hx - Home Medications Home Medications: Ambulatory Orders Medication Instructions Recorded Cyclobenzaprine [Cyclobenzaprine 10 mg PO TID PRN #20 tab 07/11/17 HCl] Naproxen [Naprosyn] 500 mg PO BID #20 tab 07/11/17 Cephalexin [Keflex] 500 mg PO TID #21 capsule 12/29/17 Ondansetron [Zofran Odt] 4 mg PO ASDIR PRN #12 odt 12/29/17 Pnv with Ca,No.72/Iron/FA 1 tab PO DAILY #14 tab 02/14/18 [ Vitamins Plus Low Iron] - Allergies Allergies/Adverse Reactions: Allergies Allergy/AdvReac Type Severity Reaction Status Date / Time No Known Allergies Allergy Verified 03/04/18 22:42 Review of Systems ROS Statement: Except As Marked, All Systems Reviewed And Found Negative Gastrointestinal: Negative for: Abdominal Pain Genitourinary Female: Positive for: Other (vaginal spotting) Musculoskeletal: Positive for: Back Pain (lower) Physical Exam - Reviewed Nursing Documentation Reviewed: Yes Vital Signs Reviewed: Yes - Physical Exam Appears: Positive for: Non-toxic, No Acute Distress Head Exam: Positive for: ATRAUMATIC, NORMOCEPHALIC Skin: Positive for: Normal Color, Warm, Dry Eye Exam: Positive for: Normal appearance, EOMI, PERRL Neck: Positive for: Normal Cardiovascular/Chest: Positive for: Regular Rate, Rhythm. Negative for: Murmur Respiratory: Positive for: Normal Breath Sounds. Negative for: Respiratory Distress Gastrointestinal/Abdominal: Positive for: Normal Exam, Soft. Negative for: Tenderness Back: Positive for: Normal Inspection Extremity: Positive for: Normal ROM (upper and lower). Negative for: Pedal Edema, Deformity Neurologic/Psych: Positive for: Alert, Oriented (x3) - Laboratory Results Result Diagrams: 03/01/18 15:45 03/01/18 15:45 - ECG O2 Sat by Pulse Oximetry: 99 (RA) Pulse Ox Interpretation: Normal Medical Decision Making Medical Decision Making: Time: 1509 Initial Impression: Threatened , Initial Plan: --Type and screen --Beta-HCG --CMP --Urine preg --Urine dip --CBC with differentials --PTT --Prothrombin time --UA --OB Transvaginal US Scribe Attestation: Documented by Meredith Ambrose, acting as a scribe for Dea Edmond MD Provider Scribe Attestation: All medical record entries made by the Scribe were at my direction and person ally dictated by me. I have reviewed the chart and agree that the record accurately reflects my personal performance of the history, physical exam, medical decision making, and the department course for this patient. I have also personally directed, reviewed, and agree with the discharge instructions and disposition. Disposition - Clinical Impression Clinical Impression: Vaginal bleeding affecting early - Disposition [facility] [[facility]] Disposition: Transfer of Care Disposition Time: 16:00 Condition: STABLE Additional Instructions: Follow up with disability rater or in this emergency department in 48 hours for repeat levels of hormone HCG. Follow up with primary medical doctor in 2 to 4 weeks regarding elevated liver enzyme AST. Return to the emergency department if symptoms worsen or if new symptoms develop. Instructions: Bleeding With (DC) Forms: [employer] (Georgian) Print Language: AMHARIC Patient Signed Over To: Katelyn Stinson
[2018-03-01 15:47] LABS: SQUAMOUS EPITHIAL 2 /hpf (0-5); URINE BACTERIA RARE (<OCC); URINE BILIRUBIN NEGATIVE (NEGATIVE); URINE BLOOD NEGATIVE (NEGATIVE); URINE COLOR YELLOW (YELLOW); URINE GLUCOSE (UA) NEG (NEGATIVE); URINE LEUKOCYTE ESTERASE NEG Leu/uL (Negative); URINE PROTEIN NEGATIVE (NEGATIVE); URINE UROBILINOGEN 0.2-1.0 mg/dL (0.2-1.0)
[2018-03-01 15:48] LABS: URINE CLARITY SLIGHT-CLOUDY (Clear)
[2018-03-01 16:01] LABS: BASO % 0.5 % (0.0-2.0); EOS % 0.5 % (0.0-4.0); HEMOGLOBIN 11.5 g/dL (12.0-16.0); LYMPH # 1.7 K/uL (1.0-4.3); LYMPH % 23.1 % (20.0-40.0); MEAN CELL VOLUME 85.1 fl (81.0-99.0); MEAN CORPUSCULAR HEMOGLOBIN 28.1 pg (27.0-31.0); MONO # 0.6 K/uL (0.0-0.8); NEUT # 5.1 K/uL (1.8-7.0); NEUT % 67.9 % (50.0-75.0); RBC 4.07 Mil/uL (3.80-5.20); RED CELL DISTRIBUTION WIDTH 13.7 % (11.5-14.5); WHITE BLOOD COUNT 7.5 K/uL (4.8-10.8)
[2018-03-01 16:02] LABS: INR 1.1; PROTHROMBIN TIME 12.5 Seconds (9.8-13.1)
[2018-03-01 16:05] LABS: PARTIAL THROMBOPLASTIN TIME 30.8 Seconds (25.6-37.1)
--- NOTE | 2018-03-01 16:14 | ED PDOC ---
- Laboratory Results Result Diagrams: 03/01/18 15:45 03/01/18 15:45 - ECG O2 Sat by Pulse Oximetry: 99 (RA) Medical Decision Making Medical Decision Making: Time: 1600 -- Patient () presents for vaginal spotting. She has no pain currently. Patient signed out to this provider by Dr. Edmond, pending labs, including HCG and US. When results are back, will touch base with wardrobe specialist and will most likely discharge home. Time: 1651 Transvaginal US FINDINGS: UTERUS: Single Live intrauterine gestation. CRL measures 0.49 cm equivalent to 6 weeks and 1 day of gestational age. Gestational sac diameter measures 1.19 cm equivalent to 5 weeks and 2 days of g estational age. age (Ultrasound estimated): 5 weeks and 5 days Date of delivery (Ultrasound estimated) : 10/27/2018 Heart rate: 92 bpm. Slime-gestational hemorrhage: None. Uterus measures 8.8 x 6.0 x 4.6 cm. No mass CERVIX: Long and closed. No cervical abnormality seen. RIGHT OVARY: Measures 2.5 x 3.2 x 1.7 cm. No mass. Normal flow. LEFT OVARY: Measures 3.8 x 2.9 x 2.1 cm. No mass. Normal flow. There is a 2.3 x 2.1 x 1.6 cm corpus luteum cyst. FREE FLUID: There is trace fluid in the pelvis. OTHER FINDINGS: None. IMPRESSION: Single live intrauterine gestation with mean gestational age of 5 weeks and 5 days. The estimated date of delivery by ultrasound is 10/27/2018. Scribe Attestation: Documented by Meredith Ambrose, acting as a scribe for Katelyn Stinson MD Provider Scribe Attestation: All medical record entries made by the Scribe were at my direction and person ally dictated by me. I have reviewed the chart and agree that the record accurately reflects my personal performance of the history, physical exam, medical decision making, and the department course for this patient. I have also personally directed, reviewed, and agree with the discharge instructions and disposition. 1830 pt with labs showing elevated AST but without other abnormalities. Pt with ultrasounds showing 5 wk 5 day gestation. PT to follow up with wardrobe specialist and given referral for outpatient clinic. Pt advised to return in 48 hours for repeat HCG or to follow up with wardrobe specialist for repeat HCG. Disposition - Clinical Impression Clinical Impression: Vaginal bleeding affecting early - POA Present On Arrival: None - Disposition Disposition: Routine/Home Disposition Time: 18:34 Condition: STABLE Additional Instructions: Follow up with wardrobe specialist or in this emergency department in 48 hours for repeat levels of hormone HCG. Follow up with primary medical doctor in 2 to 4 weeks regarding elevated liver enzyme AST. Return to the emergency department if symptoms worsen or if new symptoms develop. Instructions: Bleeding With (DC) Forms: [employer] (Swazi)
[2018-03-01 16:27] LABS: ALB/GLOB RATIO 1.1 (1.0-2.1); ALBUMIN 4.1 g/dL (3.5-5.0); ALT/SGPT 20 U/L (9-52); AST/SGOT 50 U/L (14-36); BLOOD UREA NITROGEN 8 mg/dl (7-17); CALCIUM 9.2 mg/dL (8.4-10.2); GFR NON-AFRICAN AMERICAN > 60
--- NOTE | 2018-03-01 16:54 | US ---
Date of service: 03/01/2018 PROCEDURE: OB Pelvic Ultrasound HISTORY: Vaginal spotting COMPARISON: None available. FINDINGS: UTERUS: Single Live intrauterine gestation. CRL measures 0.49 cm equivalent to 6 weeks and 1 day of gestational age. Gestational sac diameter measures 1.19 cm equivalent to 5 weeks and 2 days of gestational age. age (Ultrasound estimated): 5 weeks and 5 days Date of delivery (Ultrasound estimated) : 10/27/2018 Heart rate: 92 bpm. Slime-gestational hemorrhage: None. Uterus measures 8.8 x 6.0 x 4.6 cm. No mass CERVIX: Long and closed. No cervical abnormality seen. RIGHT OVARY: Measures 2.5 x 3.2 x 1.7 cm. No mass. Normal flow. LEFT OVARY: Measures 3.8 x 2.9 x 2.1 cm. No mass. Normal flow. There is a 2.3 x 2.1 x 1.6 cm corpus luteum cyst. FREE FLUID: There is trace fluid in the pelvis. OTHER FINDINGS: None. IMPRESSION: Single live intrauterine gestation with mean gestational age of 5 weeks and 5 days. The estimated date of delivery by ultrasound is 10/27/2018.
[2018-03-01 19:00] VITALS: BP 98/54; PULSE 81; RESP 18; TEMP 98.1
[2018-03-05 12:28] VITALS: O2SAT 99
== END 2018-03-01 19:16 | disposition home or self-care (01) ==
LOC: H.ER 14:48
DX: O20.8 Other hemorrhage in early pregnancy (principal); Z3A.01 Less than 8 weeks gestation of pregnancy

== ENCOUNTER 2018-03-03 20:40 | Emergency (ER) | payer SELFPAY ==
[2018-03-03 21:05] VITALS: BP 107/67; PULSE 75; RESP 18; TEMP 98.6; O2SAT 99
--- NOTE | 2018-03-03 21:21 | ED PDOC ---
HPI: Female Pain Time Seen by Provider: 03/03/18 21:08 Chief Complaint (Nursing): Female Genitourinary Chief Complaint (Provider): Female Genitourinary History Per: Patient History/Exam Limitations: no limitations Onset/Duration Of Symptoms: Days Current Symptoms Are (Timing): Still Present Additional Complaint(s): 23 y/o female presents to the ED for repeat blood test. Patient reports she was seen here on 03/01/2018 for vaginal bleeding. At that time, a 5 week gestation was confirmed via ultrasound. Patient states she has minimal, occasional bleeding and no abdominal pain at present. Patient reports spotting does not require use of pads or tampons. Of note, patient is ; one prior miscarriage, one child was delivered full term vaginally. Patient offers no other complaints. PMD: Yaz Sylvester LNMP: 01/16/2018 Abnormal Vaginal Bleeding: Yes Last Menstral Period: 01/16/2018 : 3 Para: 1 Miscarriage: 1 Past Medical History Reviewed: Historical Data, Nursing Documentation, Vital Signs Vital Signs: Last Vital Signs Temp 98.6 F 03/03/18 21:03 Pulse 75 03/03/18 21:03 Resp 18 03/03/18 21:03 BP 107/67 03/03/18 21:03 Pulse Ox 99 03/03/18 21:03 - Medical History PMH: No Chronic Diseases - Surgical History Surgical History: No Surg Hx - Family History Family History: States: Unknown Family Hx - Home Medications Home Medications: Ambulatory Orders Medication Instructions Recorded Cyclobenzaprine [Cyclobenzaprine 10 mg PO TID PRN #20 tab 07/11/17 HCl] Naproxen [Naprosyn] 500 mg PO BID #20 tab 07/11/17 Cephalexin [Keflex] 500 mg PO TID #21 capsule 12/29/17 Ondansetron [Zofran Odt] 4 mg PO ASDIR PRN #12 odt 12/29/17 Pnv with Ca,No.72/Iron/FA 1 tab PO DAILY #14 tab 02/14/18 [ Vitamins Plus Low Iron] - Allergies Allergies/Adverse Reactions: Allergies Allergy/AdvReac Type Severity Reaction Status Date / Time No Known Allergies Allergy Verified 03/01/18 15:03 Review of Systems ROS Statement: Except As Marked, All Systems Reviewed And Found Negative Constitutional: Positive for: Other (Repeat blood test) Genitourinary Female: Positive for: Vaginal Bleeding (Very minimal vaginal spotting) Physical Exam - Reviewed Nursing Documentation Reviewed: Yes Vital Signs Reviewed: Yes - Physical Exam Comments: GENERAL APPEARANCE: Patient is awake, alert, oriented x 3, in no acute distress. NECK: Supple, FROM ENT: Mucus membranes moist. Airway patent, (-) stridor. CHEST AND RESPIRATORY: (-) wheezing; (-) rales, (-) rhonchi; breath sounds equal bilaterally. Respirations nonlabored. HEART AND CARDIOVASCULAR: (-) irregularity ABDOMEN AND GI: Soft; (-) tenderness (-) distention (-) guarding NEURO: Mental status as above. Gait: steady. Speech: clear (-) facial asymmetry - Laboratory Results Result Diagrams: 03/03/18 22:10 - ECG O2 Sat by Pulse Oximetry: 99 (RA) Pulse Ox Interpretation: Normal Medical Decision Making Medical Decision Making: Time: 2104 Impression: Visit for blood test, bleeding in first trimester. Plan: -- Beta-HCG, Quantitative -- CBC --Upon review of prior charts, blood type: A+ 22:55 beta quant 03/01/18: 5213 beta quant today: 4998 CBC unremarkable. H&H stable. Transvaginal U/S ordered for further evaluation of miscarriage. 2330 Case endorsed to Myrna Motta PA-C pending U/S evaluation and further disposition. Scribe Attestation: Documented by Adriano Walter, acting as a scribe for Katelyn Mirza PA-C. Provider Scribe Attestation: All medical record entries made by the Scribe were at my direction and personally dictated by me. I have reviewed the chart and agree that the record accurately reflects my personal performance of the history, physical exam, medical decision making, and the department course for this patient. I have also personally directed, reviewed, and agree with the discharge instructions and disposition. Disposition - Clinical Impression Clinical Impression: First trimester bleeding, Threatened miscarriage - Patient ED Disposition Is Patient to be Admitted: Transfer of Care (Case endorsed to Myrna Motta PA-C pending U/S evaluation and further disposition.) - Disposition Disposition: Transfer of Care (Case endorsed to Myrna Motta PA-C pending U/S evaluation and further disposition.) Disposition Time: 23:30 Condition: FAIR - POA Present On Arrival: None Results - Lab Results Lab Results: 03/03/18 03/03/18 22:10 22:10 WBC 6.9 RBC 3.91 Hgb 11.0 L Hct 33.3 L MCV 85.1 MCH 28.1 MCHC 33.0 RDW 13.6 Plt Count 227 Beta HCG, Quant 4998.70
[2018-03-03 22:17] LABS: MEAN CELL VOLUME 85.1 fl (81.0-99.0); MEAN CORPUSCULAR HEMOGLOBIN 28.1 pg (27.0-31.0); RBC 3.91 Mil/uL (3.80-5.20); RED CELL DISTRIBUTION WIDTH 13.6 % (11.5-14.5); WHITE BLOOD COUNT 6.9 K/uL (4.8-10.8)
--- NOTE | 2018-03-04 01:51 | ED PDOC ---
- Laboratory Results Result Diagrams: 03/03/18 22:10 - ECG O2 Sat by Pulse Oximetry: 99 (RA) Pulse Ox Interpretation: Normal Medical Decision Making Medical Decision Making: Pt endorsed pending US. US shows IUP, with FHT 131. Disposition - Clinical Impression Clinical Impression: First trimester bleeding, Threatened miscarriage - POA Present On Arrival: None - Disposition Disposition: Routine/Home Disposition Time: 01:48 Condition: GOOD Additional Instructions: Please follow-up with your OB. Instructions: Bleeding With
--- NOTE | 2018-03-04 10:54 | US ---
Date of service: 03/03/2018 PROCEDURE: OB Pelvic Ultrasound HISTORY: decreasing beta quant 01/14/2018 COMPARISON: 03/01/2018 FINDINGS: UTERUS: Gestational sac: Single live intrauterine gestation. Gestational sac diameter is 9 mm, out of range for determination of age. This has decreased slightly in size compared to the examination of 03/01/2018 at which time the mean sac diameter was 12 mm. The sac is mildly flattened. [place]-rump length 4 mm corresponding to 6 weeks 1 day gestational age. Heart rate: 131.5 bpm. age (Ultrasound estimated): 6 weeks 1 day Slime-gestational hemorrhage: None. Date of delivery (Ultrasound estimated) : 10/26/2018 Uterus measures 8.8 x 4.8 x 6.7 cm. Normal in size and appearance. CERVIX: Measures 3.5 cm. Long and closed. No cervical abnormality seen. RIGHT OVARY: Measures 3.0 x 1.6 x 1.4 cm. No mass lesion. Normal flow. LEFT OVARY: Measures 3.8 x 2.6 x 2.0 cm. No solid mass. Normal flow. FREE FLUID: None. OTHER FINDINGS: None. IMPRESSION: Single live intrauterine gestation of approximately 6 weeks 1 day. heart rate 131.5. The gestational sac diameter has decreased slightly when compared to the prior examination of 03/01/2018. Continued follow-up with transvaginal ultrasound and serial beta HCG is advised. No subchorionic hemorrhage. The preliminary findings for this examination were reported by [facility] Rad[facility] at 1:39 a.m. on 03/04/2018. There is concurrence of this report with the preliminary findings.
== END 2018-03-04 02:28 | disposition home or self-care (01) ==
LOC: H.ER 20:40
DX: O20.0 Threatened abortion (principal); Z3A.01 Less than 8 weeks gestation of pregnancy

== ENCOUNTER 2018-03-04 20:41 | Emergency (ER) | payer SELFPAY ==
[2018-03-04 22:44] VITALS: PULSE 83
[2018-03-05 00:40] LABS: BASO % 0.5 % (0.0-2.0); EOS # 0.1 K/uL (0.0-0.7); EOS % 1.7 % (0.0-4.0); HEMOGLOBIN 11.5 g/dL (12.0-16.0); LYMPH # 1.9 K/uL (1.0-4.3); LYMPH % 28.2 % (20.0-40.0); MEAN CELL VOLUME 85.1 fl (81.0-99.0); MEAN CORPUSCULAR HEMOGLOBIN 28.1 pg (27.0-31.0); MEAN CORPUSCULAR HGB CONC 33.1 g/dL (33.0-37.0); MEAN PLATELET VOLUME 8.2 fl (7.2-11.7); MONO # 0.5 K/uL (0.0-0.8); MONO % 7.2 % (0.0-10.0); NEUT # 4.2 K/uL (1.8-7.0); NEUT % 62.4 % (50.0-75.0); RBC 4.1 Mil/uL (3.80-5.20); RED CELL DISTRIBUTION WIDTH 13.7 % (11.5-14.5); WHITE BLOOD COUNT 6.7 K/uL (4.8-10.8)
[2018-03-05 00:54] LABS: ALB/GLOB RATIO 1.2 (1.0-2.1); ALBUMIN 4.1 g/dL (3.5-5.0); ALT/SGPT 17 U/L (9-52); AST/SGOT 25 U/L (14-36); BLOOD UREA NITROGEN 11 mg/dl (7-17); CALCIUM 9.5 mg/dL (8.4-10.2); GFR NON-AFRICAN AMERICAN > 60
[2018-03-05 00:56] LABS: INR 1.1; PROTHROMBIN TIME 12.4 Seconds (9.8-13.1)
[2018-03-05 00:59] LABS: PARTIAL THROMBOPLASTIN TIME 28.7 Seconds (25.6-37.1)
--- NOTE | 2018-03-05 01:46 | ED PDOC ---
HPI: Female Pain Time Seen by Provider: 03/04/18 22:38 Chief Complaint (Nursing): Female Genitourinary Chief Complaint (Provider): Vaginal bleeding in History Per: Patient History/Exam Limitations: no limitations Onset/Duration Of Symptoms: Days Current Symptoms Are (Timing): Still Present Additional Complaint(s): 23 yo female, presents for evaluation of continued vaginal bleeding. 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 Pt reports passing a large clot today. Pt has been seen in ER 3 previous times for this and IUP with FHT documented. Pt reports generalized suprapubic pain. Past Medical History Reviewed: Historical Data, Nursing Documentation, Vital Signs Vital Signs: Last Vital Signs Temp 98.7 F 03/04/18 22:42 Pulse 83 03/04/18 22:42 Resp 18 03/04/18 22:42 BP 108/70 03/04/18 22:42 Pulse Ox 100 03/04/18 22:42 - Medical History PMH: No Chronic Diseases - Surgical History Surgical History: No Surg Hx - Family History Family History: States: Unknown Family Hx - Living Arrangements Living Arrangements: With Family - Social History Current smoker - smoking cessation education provided: No - Home Medications Home Medications: Ambulatory Orders Medication Instructions Recorded Cyclobenzaprine [Cyclobenzaprine 10 mg PO TID PRN #20 tab 07/11/17 HCl] Naproxen [Naprosyn] 500 mg PO BID #20 tab 07/11/17 Cephalexin [Keflex] 500 mg PO TID #21 capsule 12/29/17 Ondansetron [Zofran Odt] 4 mg PO ASDIR PRN #12 odt 12/29/17 Pnv with Ca,No.72/Iron/FA 1 tab PO DAILY #14 tab 02/14/18 [ Vitamins Plus Low Iron] - Allergies Allergies/Adverse Reactions: Allergies Allergy/AdvReac Type Severity Reaction Status Date / Time No Known Allergies Allergy Verified 03/04/18 22:42 Review of Systems ROS Statement: Except As Marked, All Systems Reviewed And Found Negative Constitutional: Negative for: Fever, Chills Genitourinary Female: Positive for: Vaginal Bleeding, Pelvic Pain Neurological: Negative for: Altered Mental Status, Headache, Dizziness Physical Exam - Reviewed Nursing Documentation Reviewed: Yes Vital Signs Reviewed: Yes - Physical Exam Appears: Positive for: Well, Non-toxic, No Acute Distress Head Exam: Positive for: ATRAUMATIC, NORMAL INSPECTION, NORMOCEPHALIC Skin: Positive for: Normal Color, Warm, DRY Eye Exam: Positive for: Normal appearance ENT: Positive for: Normal ENT Inspection Neck: Positive for: Normal, Painless ROM Cardiovascular/Chest: Positive for: Regular Rate, Rhythm Respiratory: Positive for: Normal Breath Sounds. Negative for: Accessory Muscle Use, Respiratory Distress Back: Positive for: Normal Inspection Extremity: Positive for: Normal ROM Neurologic/Psych: Positive for: Alert, Oriented - Laboratory Results Result Diagrams: 03/05/18 00:25 03/05/18 00:25 - ECG O2 Sat by Pulse Oximetry: 100 Medical Decision Making Medical Decision Making: Beta Hcg 03/01 Discussed follow-up with [facility] and return precautions for continued heavy bleeding, dizziness, feeling faint, fast HR ect. Disposition - Clinical Impression Clinical Impression: Miscarriage - Patient ED Disposition Is Patient to be Admitted: No Counseled Patient/Family Regarding: Diagnosis, Need For Followup - Disposition Disposition: Routine/Home Disposition Time: 01:49 Condition: GOOD Instructions: Dealing With Miscarriage, Miscarriage (DC) Forms: [employer] (Maori)
[2018-03-05 08:10] VITALS: BP 124/66; RESP 15; TEMP 98.2; O2SAT 98
== END 2018-03-05 02:10 | disposition home or self-care (01) ==
LOC: H.ER 20:41
DX: O03.9 Complete or unspecified spontaneous abortion without complication (principal); O46.90 Antepartum hemorrhage, unspecified, unspecified trimester; Z3A.00 Weeks of gestation of pregnancy not specified

== ENCOUNTER 2018-03-21 15:55 | Emergency (ER) | payer SELFPAY ==
[2018-03-21 16:34] VITALS: O2SAT 99
[2018-03-21] MEDS ORDERED: Lactated Ringer's 1,000 ML IV STA (16:54)
--- NOTE | 2018-03-21 17:30 | ED PDOC ---
Syncope/Near Syncope/Dizziness Time Seen by Provider: 03/21/18 16:49 Chief Complaint (Nursing): Syncope Chief Complaint (Provider): Syncope History Per: Patient History/Exam Limitations: no limitations Onset/Duration Of Symptoms: Days (x7) Current Symptoms Are (Timing): Still Present Additional Complaint(s): Patient is a 23 y/o female with no significant PMHx who presents to the ED for evaluation of episodes of syncope and a feeling of dizziness and lightheadedness for the past week. In addition, patient has been feeling tired and fatigued. Patient reports to have had a miscarriage three weeks ago. Patient states to have experienced vaginal bleeding and discharge for a week that is no longer present. Patient also admits in the last few weeks of experiencing poor sleep. Patient denies abdominal pain, any urinary symptoms, CP, and SOB. Of note, patient states she had a episode of syncope earlier today and has had a feeling of potentially blacking out since. PCP: Dr. Yaz Sylvester Past Medical History Reviewed: Historical Data, Nursing Documentation, Vital Signs Vital Signs: Last Vital Signs Temp 98.5 F 03/21/18 16:31 Pulse 70 03/21/18 16:31 Resp 18 03/21/18 16:31 BP 94/65 L 03/21/18 16:31 Pulse Ox 99 03/21/18 16:31 - Medical History PMH: No Chronic Diseases - Surgical History Surgical History: No Surg Hx - Family History Family History: States: Unknown Family Hx - Social History Current smoker - smoking cessation education provided: No Alcohol: None Drugs: Denies - Home Medications Home Medications: Ambulatory Orders Medication Instructions Recorded Cyclobenzaprine [Cyclobenzaprine 10 mg PO TID PRN #20 tab 07/11/17 HCl] Naproxen [Naprosyn] 500 mg PO BID #20 tab 07/11/17 Cephalexin [Keflex] 500 mg PO TID #21 capsule 12/29/17 Ondansetron [Zofran Odt] 4 mg PO ASDIR PRN #12 odt 12/29/17 Pnv with Ca,No.72/Iron/FA 1 tab PO DAILY #14 tab 02/14/18 [ Vitamins Plus Low Iron] RX: DiphenhydrAMINE [Benadryl] 25 mg PO HS PRN #20 cap 03/21/18 - Allergies Allergies/Adverse Reactions: Allergies Allergy/AdvReac Type Severity Reaction Status Date / Time No Known Allergies Allergy Verified 03/04/18 22:42 Review of Systems ROS Statement: Except As Marked, All Systems Reviewed And Found Negative (as per HPI) Constitutional: Positive for: Other (Tired and Fatigue) Cardiovascular: Negative for: Chest Pain Respiratory: Negative for: Shortness of Breath Gastrointestinal: Negative for: Abdominal Pain Genitourinary Female: Negative for: Dysuria, Hematuria, Vaginal Discharge, Vaginal Bleeding Neurological: Positive for: Dizziness, Other (Lightheaded) Physical Exam - Reviewed Nursing Documentation Reviewed: Yes Vital Signs Reviewed: Yes - Physical Exam Appears: Positive for: No Acute Distress (Tired Appearing) Head Exam: Positive for: ATRAUMATIC, NORMOCEPHALIC Skin: Positive for: Warm, Dry Eye Exam: Positive for: EOMI, PERRL ENT: Negative for: Pharyngeal Erythema, Tonsillar Exudate Neck: Positive for: Painless ROM, Supple Cardiovascular/Chest: Positive for: Regular Rate, Rhythm. Negative for: Murmur Respiratory: Positive for: Normal Breath Sounds. Negative for: Respiratory Dist ress Gastrointestinal/Abdominal: Positive for: Soft. Negative for: Tenderness Back: Positive for: Normal Inspection. Negative for: Decreased ROM Extremity: Positive for: Normal ROM. Negative for: Deformity Lymphatic: Negative for: Adenopathy Neurologic/Psych: Positive for: Alert, Oriented, Gait (steady). Negative for: Motor/Sensory Deficits, Aphasia - Laboratory Results Result Diagrams: 03/21/18 18:00 03/21/18 18:00 - ECG O2 Sat by Pulse Oximetry: 99 (RA) Pulse Ox Interpretation: Normal Medical Decision Making Medical Decision Making: Time: 1635 Impression: Syncope DDx includes but not limited to vasovagal syncope, anemia, dehydration, and electrolyte abnormality. Plan: EKG Beta-HCG, Quantitative CMP Lact Acid, Plasma Magnesium Phosphorus TSH Urine Urine Dipstick CBC Lactated Ringer's 1,000 ml IV 1,000 mls/hr IV Insertion (Saline Lock) Orthostatic BP Labs with no emergently significant abnormalities. Stable for dc. DW pt findings and plan of care. Scribe Attestation: Documented by Brice Elena, acting as a scribe for Piper Wen MD. Provider Scribe Attestation: All medical record entries made by the Scribe were at my direction and personally dictated by me. I have reviewed the chart and agree that the record accurately reflects my personal performance of the history, physical exam, medical decision making, and the department course for this patient. I have also personally directed, reviewed, and agree with the discharge instructions and disposition. Disposition - Clinical Impression Clinical Impression: Syncope, Dizziness - Disposition Referrals: [facility] [Outside] Disposition: Routine/Home Disposition Time: 21:00 Condition: IMPROVED Additional Instructions: DRINK PLENTY OF HYDRATING FLUIDS, EAT AT LEAST 3 MEALS A DAY, AND REST TAKE MULTIVITAMIN DAILY FOLLOWUP AT CLINIC THIS WEEK FOR REEVALUATION Prescriptions: RX: DiphenhydrAMINE [Benadryl] 25 mg PO HS PRN #20 cap PRN Reason: Insomnia Instructions: Syncope (Fainting) (DC), Dizziness, Nonvertigo, (DC) Forms: [employer] ED School/Work Excuse
[2018-03-21 18:07] LABS: BASO % 0.6 % (0.0-2.0); EOS # 0.1 K/uL (0.0-0.7); EOS % 2.4 % (0.0-4.0); HEMOGLOBIN 11.8 g/dL (12.0-16.0); LYMPH # 2.1 K/uL (1.0-4.3); LYMPH % 36.5 % (20.0-40.0); MEAN CELL VOLUME 86.6 fl (81.0-99.0); MEAN CORPUSCULAR HEMOGLOBIN 28.3 pg (27.0-31.0); MEAN CORPUSCULAR HGB CONC 32.7 g/dL (33.0-37.0); MEAN PLATELET VOLUME 8.1 fl (7.2-11.7); MONO # 0.5 K/uL (0.0-0.8); MONO % 9.1 % (0.0-10.0); NEUT # 2.9 K/uL (1.8-7.0); NEUT % 51.4 % (50.0-75.0); NRBC % 0.1 % (0.0-0.0); RBC 4.18 Mil/uL (3.80-5.20); RED CELL DISTRIBUTION WIDTH 13.4 % (11.5-14.5); WHITE BLOOD COUNT 5.7 K/uL (4.8-10.8)
[2018-03-21 18:19] LABS: ALB/GLOB RATIO 1.1 (1.0-2.1); ALBUMIN 4.1 g/dL (3.5-5.0); ALT/SGPT 15 U/L (9-52); AST/SGOT 24 U/L (14-36); BLOOD UREA NITROGEN 11 mg/dl (7-17); CALCIUM 9.3 mg/dL (8.4-10.2); GFR NON-AFRICAN AMERICAN > 60
[2018-03-21 21:10] VITALS: BP 102/68; PULSE 72; RESP 16; TEMP 98.1
--- NOTE | 2018-03-22 20:23 | CARD ---
APPROVED REPORT Date of service: 03/21/2018 EKG Measurement Heart [id number] <Conclusion> Sinus rhythm with marked sinus arrhythmia Otherwise normal ECG
== END 2018-03-21 21:10 | disposition home or self-care (01) ==
LOC: H.ER 15:55
DX: R55 Syncope and collapse (principal)
CPT/HCPCS: 80053; 81025; 83605; 83735; 84100; 84443; 84702; 85025; 93005; 96360; 99283; J7120

== ENCOUNTER 2018-05-09 00:24 | Emergency (ER) | payer SELFPAY ==
[2018-05-09] MEDS ORDERED: Sodium Chloride 0.9% 1,000 ML IV STA (01:06)
--- NOTE | 2018-05-09 01:12 | ED PDOC ---
HPI: Headache Time Seen by Provider: 05/09/18 00:53 Chief Complaint (Nursing): Headache Chief Complaint (Provider): Headache History Per: Patient History/Exam Limitations: no limitations Onset/Duration Of Symptoms: Days (x1 week) Additional Complaint(s): 23 y/o female with no significant past medical history presents to the ED with x1 week of headache. Patient reports headache is associated with sore throat and body aches. Patient additionally reports she had a fever. She states she took Tylenol with no relief. Patient describes headache as frontal. She states she did not get her flu shot. Past Medical History Reviewed: Historical Data, Nursing Documentation, Vital Signs Vital Signs: Last Vital Signs Temp 98.1 F 05/09/18 00:28 Pulse 81 05/09/18 00:28 Resp 18 05/09/18 00:28 BP 101/66 05/09/18 00:28 Pulse Ox 100 05/09/18 00:28 - Medical History PMH: No Chronic Diseases - Surgical History Surgical History: No Surg Hx - Family History Family History: States: Unknown Family Hx - Immunization History Hx Influenza Vaccination: No - Home Medications Home Medications: Ambulatory Orders Medication Instructions Recorded Cyclobenzaprine [Cyclobenzaprine 10 mg PO TID PRN #20 tab 07/11/17 HCl] Naproxen [Naprosyn] 500 mg PO BID #20 tab 07/11/17 Cephalexin [Keflex] 500 mg PO TID #21 capsule 12/29/17 Ondansetron [Zofran Odt] 4 mg PO ASDIR PRN #12 odt 12/29/17 Pnv with Ca,No.72/Iron/FA 1 tab PO DAILY #14 tab 02/14/18 [ Vitamins Plus Low Iron] DiphenhydrAMINE [Benadryl] 25 mg PO HS PRN #20 cap 03/21/18 Metoclopramide [Reglan] 10 mg PO Q6 PRN #12 tab 05/09/18 - Allergies Allergies/Adverse Reactions: Allergies Allergy/AdvReac Type Severity Reaction Status Date / Time No Known Allergies Allergy Verified 03/04/18 22:42 Review of Systems ROS Statement: Except As Marked, All Systems Reviewed And Found Negative Constitutional: Positive for: Fever ENT: Positive for: Throat Pain Neurological: Positive for: Headache Physical Exam - Reviewed Nursing Documentation Reviewed: Yes Vital Signs Reviewed: Yes - Physical Exam Appears: Positive for: Uncomfortable Head Exam: Positive for: ATRAUMATIC, NORMAL INSPECTION, NORMOCEPHALIC Skin: Positive for: Normal Color, Warm, DRY Eye Exam: Positive for: EOMI, Normal appearance, PERRL ENT: Positive for: Normal ENT Inspection Neck: Positive for: Normal, Painless ROM Cardiovascular/Chest: Positive for: Regular Rate, Rhythm. Negative for: Murmur Respiratory: Positive for: Normal Breath Sounds. Negative for: Respiratory Distress Gastrointestinal/Abdominal: Positive for: Normal Exam, Soft. Negative for: Tenderness Back: Positive for: Normal Inspection Extremity: Positive for: Normal ROM. Negative for: Pedal Edema, Deformity Neurologic/Psych: Positive for: Alert, Oriented. Negative for: Motor/Sensory Deficits - Laboratory Results Result Diagrams: 05/09/18 01:53 05/09/18 01:53 - ECG O2 Sat by Pulse Oximetry: 100 (RA) Pulse Ox Interpretation: Normal Medical Decision Making Medical Decision Making: Time: 01:06 Initial Impression: 23 y/o with flu-like symptoms Initial Plan: * Labs * IV Fluids * Reglan * Toradol 03:00 Patient reports marked improvement of symptoms. Labs reviewed no clinically significant abnormalities. Patient is stable for discharge diagnosis is influenza like symptoms and viral syndrome. Patient will follow up in Clinic. -- Scribe Attestation: Documented by Laron Coleman acting as a scribe for Obey Booker MD. Provider Scribe Attestation: All medical record entries made by the Scribe were at my direction and personally dictated by me. I have reviewed the chart and agree that the record accurately reflects my personal performance of the history, physical exam, medical decision making, and the department course for this patient. I have also personally directed, reviewed, and agree with the discharge instructions and disposition. Disposition - Clinical Impression Clinical Impression: Influenza-like symptoms - Patient ED Disposition Is Patient to be Admitted: No - Disposition Disposition: Routine/Home Disposition Time: 03:00 Condition: STABLE Additional Instructions: OMER CANELA, thank you for letting us take care of you today. Your provider was Obey Booker MD and you were treated for HEADACHE. The emergency medical care you received today was directed at your acute symptoms. If you were prescribed any medication, please fill it and take as directed. It may take several days for your symptoms to resolve. Return to the Emergency Department if your symptoms worsen, do not improve, or if you have any other problems. Please contact your doctor or call one of the physicians/clinics you have been referred to that are listed on the Patient Visit Information form that is included in your discharge packet. Bring any paperwork you were given at discharge with you along with any medications you are taking to your follow up visit. Our treatment cannot replace ongoing medical care by a primary care provider outside of the emergency department. Thank you for allowing the [facility] team to be part of your care today. If you had an X-Ray or CT scan: A Radiologist will review the ED reading if any change in treatment is needed we will contact you. If you had a blood, urine, or wound culture: It will take several days for the results, if any change in treatment is needed we will contact you. If you had an STI test: It will take 48 hours for the results. Please call after 1 week if you have not heard back. Prescriptions: Metoclopramide [Reglan] 10 mg PO Q6 PRN #12 tab PRN Reason: headache/nausea/vomiting Instructions: Viral Syndrome (DC) Forms: [employer] (Maltese)
[2018-05-09 02:01] LABS: BASO % 0.5 % (0.0-2.0); EOS # 0.1 K/uL (0.0-0.7); EOS % 2.4 % (0.0-4.0); LYMPH # 2.5 K/uL (1.0-4.3); LYMPH % 39.4 % (20.0-40.0); MEAN CELL VOLUME 84.9 fl (81.0-99.0); MEAN CORPUSCULAR HEMOGLOBIN 28.3 pg (27.0-31.0); MEAN CORPUSCULAR HGB CONC 33.4 g/dL (33.0-37.0); MEAN PLATELET VOLUME 8.3 fl (7.2-11.7); MONO # 0.6 K/uL (0.0-0.8); MONO % 8.8 % (0.0-10.0); NEUT % 48.9 % (50.0-75.0); NRBC % 0.2 % (0.0-0.0); RBC 4.23 Mil/uL (3.80-5.20); RED CELL DISTRIBUTION WIDTH 12.9 % (11.5-14.5); WHITE BLOOD COUNT 6.2 K/uL (4.8-10.8)
[2018-05-09 02:08] LABS: ALBUMIN 3.8 g/dL (3.5-5.0); ALT/SGPT 17 U/L (9-52); AST/SGOT 20 U/L (14-36); BLOOD UREA NITROGEN 14 mg/dl (7-17); CALCIUM 9.3 mg/dL (8.4-10.2); GFR NON-AFRICAN AMERICAN > 60
[2018-05-09 04:07] VITALS: BP 118/72; PULSE 87; RESP 16; TEMP 98.3; O2SAT 98
== END 2018-05-09 03:05 | disposition home or self-care (01) ==
LOC: H.ER 00:24
DX: B34.9 Viral infection, unspecified (principal)
CPT/HCPCS: 80053; 81025; 85025; 87804; 96360; 99285; J1885; J2765; J7030